=== PATIENT | female | born 1960 | race Caucasian/White ===

== ENCOUNTER 2018-03-14 21:31 | Emergency (ER) | payer MEDICARE ==
[~2018-03-14] VITALS: Ht 162.6 cm; Wt 72.4 kg
[2018-03-15] MEDS ORDERED: normal saline 1000ML IV soln IVB ONE (01:45)
[2018-03-15 02:19] LABS: BASOPHILS % (AUTO) 0.4 % (0-1); EOSINOPHILS # (AUTO) 0.1 X10'3 (0-0.9); EOSINOPHILS % (AUTO) 1.9 % (0-6); HEMATOCRIT 41.4 % (35.0-45.0); HEMOGLOBIN 14.2 g/dl (12.0-16.0); LYMPHOCYTES % (AUTO) 34.6 % (21-51); MEAN CORPUSCULAR HEMOGLOBIN 34.5 PG (27.0-31.0); MEAN CORPUSCULAR HGB CONC 34.4 % (33.0-36.5); MEAN CORPUSCULAR VOLUME 100.4 FL (78-98); MEAN PLATELET VOLUME 7.4 FL (7.4-10.4); MONOCYTES # (AUTO) 0.5 X10'3 (0-0.9); MONOCYTES % (AUTO) 8.5 % (2-12); NEUTROPHILS # (AUTO) 3.2 X10'3 (1.8-7.7); NEUTROPHILS % (AUTO) 54.6 % (42-75); PLATELET COUNT 178 X10'3 (140-440); RED BLOOD COUNT 4.12 X10'6 (4.20-5.60); RED CELL DISTRIBUTION WIDTH 15.2 % (11.5-14.5); WHITE BLOOD COUNT 5.9 X10'3 (4.5-11.0)
[2018-03-15 02:32] LABS: PARTIAL THROMBOPLASTIN TIME 25 SECONDS (22-32)
[2018-03-15 02:36] LABS: ALANINE AMINOTRANSFERASE 218 U/L (12-78); ALBUMIN 3.1 G/DL (3.4-5.0); ALBUMIN/GLOBULIN RATIO 0.9 (1.1-1.5); ALKALINE PHOSPHATASE 151 IU/L (46-116); ANION GAP 18 (8-16); ASPARTATE AMINO TRANSFERASE 404 U/L (10-37); BILIRUBIN,TOTAL 0.8 MG/DL (0.1-1.0); BLOOD UREA NITROGEN 9 MG/DL (7-18); BUN/CREATININE RATIO 12.3 (6.6-38.0); CALCIUM 8.7 MG/DL (8.5-10.1); CHLORIDE 99 MMOL/L (99-107); CREATININE 0.73 MG/DL (0.40-0.90); GLUCOSE 72 MG/DL (70-104); SODIUM 139 MMOL/L (135-145); TOTAL CARBON DIOXIDE 22.3 MMOL/L (24-32); TOTAL PROTEIN 6.7 G/DL (6.4-8.2); eGFR 82 ML/MIN
[2018-03-15 02:45] LABS: CREATINE KINASE 47 U/L (26-192); ETHANOL 0.144 GM/DL (0.0-0.010); MAGNESIUM 1.4 MG/DL (1.5-2.4)
[2018-03-15 03:27] LABS: URINE AMPHETAMINE SCREEN NEGATIVE (Neg); URINE BARBITUATE SCREEN NEGATIVE (Neg); URINE BENZODIAZEPINES SCREEN NEGATIVE (Neg); URINE CANNABINOID SCREEN NEGATIVE (Neg); URINE COCAINE SCREEN NEGATIVE (Neg); URINE METHADONE SCREEN NEGATIVE (Neg); URINE OPIATE SCREEN NEGATIVE (Neg); URINE PHENCYCLIDINE SCREEN NEGATIVE (Neg)
[2018-03-15 03:41] LABS: CLARITY,URINE CLEAR (Clear); COLOR,URINE YELLOW (Yellow); GLUCOSE, URINE NEGATIVE (Neg); KETONES,URINE 40 mg/dl (Neg); LEUKOCYTE ESTERASE ,URINE NEGATIVE (Neg); NITRITES, URINE NEGATIVE (Neg); OCCULT BLOOD,URINE NEGATIVE (Neg); PROTEIN,URINE NEGATIVE (Neg)
[2018-03-15 03:47] LABS: UA COLLECTION TYPE CLN CATCH MIDSTREAM
[2018-03-15] MEDS ORDERED: ondansetron/PF 4mg/2ml inj IV ONE (04:00)
[2018-03-15 04:35] VITALS: BP 140/70
== END 2018-03-15 04:37 | disposition home or self-care (01) ==
LOC: ER 21:32
DX: F10.929 Alcohol use, unspecified with intoxication, unspecified (principal); E03.9 Hypothyroidism, unspecified; R74.0 Nonspecific elevation of levels of transaminase and lactic acid dehydrogenase [LDH]; E78.00 Pure hypercholesterolemia, unspecified; F17.200 Nicotine dependence, unspecified, uncomplicated; I10 Essential (primary) hypertension; Z90.710 Acquired absence of both cervix and uterus; Z88.1 Allergy status to other antibiotic agents; Z88.8 Allergy status to other drugs, medicaments and biological substances
CPT/HCPCS: 36415; 71045; 80053; 80305; 80320; 81003; 82140; 82550; 83735; 84443; 84484; 85025; 85610; 85651; 85730; 93005; 96360; 99285; J7030; J2405

== ENCOUNTER 2018-03-22 07:45 | Inpatient (IN) | payer MEDICARE ==
[~2018-03-22] VITALS: Ht 160 cm; Wt 77.0 kg
[2018-03-22] MEDS ORDERED: LORazepam 1 MG tablet PO ONE (08:05)
[2018-03-22 09:10] LABS: BASOPHILS % (AUTO) 0.1 % (0-1); EOSINOPHILS % (AUTO) 0.8 % (0-6); HEMATOCRIT 36.8 % (35.0-45.0); HEMOGLOBIN 12.6 g/dl (12.0-16.0); LYMPHOCYTES # (AUTO) 0.7 X10'3 (1.1-4.8); LYMPHOCYTES % (AUTO) 11.6 % (21-51); MEAN CORPUSCULAR HEMOGLOBIN 34.7 PG (27.0-31.0); MEAN CORPUSCULAR HGB CONC 34.1 % (33.0-36.5); MEAN CORPUSCULAR VOLUME 101.6 FL (78-98); MEAN PLATELET VOLUME 7.3 FL (7.4-10.4); MONOCYTES # (AUTO) 0.4 X10'3 (0-0.9); MONOCYTES % (AUTO) 6.7 % (2-12); NEUTROPHILS # (AUTO) 4.5 X10'3 (1.8-7.7); NEUTROPHILS % (AUTO) 80.8 % (42-75); PLATELET COUNT 193 X10'3 (140-440); RED BLOOD COUNT 3.62 X10'6 (4.20-5.60); RED CELL DISTRIBUTION WIDTH 16.5 % (11.5-14.5); WHITE BLOOD COUNT 5.6 X10'3 (4.5-11.0)
[2018-03-22 09:24] LABS: ALANINE AMINOTRANSFERASE 274 U/L (12-78); ALBUMIN 3.3 G/DL (3.4-5.0); ALKALINE PHOSPHATASE 202 IU/L (46-116); ANION GAP 26 (8-16); ASPARTATE AMINO TRANSFERASE 394 U/L (10-37); BILIRUBIN,TOTAL 1.2 MG/DL (0.1-1.0); BLOOD UREA NITROGEN 7 MG/DL (7-18); BUN/CREATININE RATIO 8.4 (6.6-38.0); CALCIUM 8.7 MG/DL (8.5-10.1); CHLORIDE 98 MMOL/L (99-107); CREATININE 0.83 MG/DL (0.40-0.90); GLUCOSE 75 MG/DL (70-104); POTASSIUM 4.2 MMOL/L (3.5-5.1); SODIUM 139 MMOL/L (135-145); TOTAL CARBON DIOXIDE 15.5 MMOL/L (24-32); TOTAL PROTEIN 6.5 G/DL (6.4-8.2); eGFR 71 ML/MIN
[2018-03-22] MEDS ORDERED: normal saline 1000ML IV soln IVB ONE (09:30)
[2018-03-22] MEDS ORDERED: mag hydrox/Alum hydrox/simeth 30ml oral suspension PO PRN (15:30)
[2018-03-22] MEDS ORDERED: dextrose 50%-water 50ml dispensing syringe IV PRN (15:30)
[2018-03-22] MEDS ORDERED: acetaminophen 325mg tablet PO PRN ×2 (15:30)
[2018-03-22] MEDS ORDERED: ondansetron/PF 4mg/2ml inj IV PRN (15:30)
[2018-03-22] MEDS ORDERED: HYDROcodone/acetaminophen 5mg/325mg tablet PO PRN (15:30)
[2018-03-22] MEDS ORDERED: potassium Cl 20 mEq SR tablet PO PRN (15:30)
[2018-03-22] MEDS ORDERED: HYDROcodone/acetaminophen 10/325mg tab PO PRN (15:30)
[2018-03-22] MEDS ORDERED: potassium Cl 40MEQ/NS 500ml 500 ML IV PRN ×2 (15:30)
[2018-03-22] MEDS ORDERED: magnesium 4gm in 100ml NS 100 ML IV PRN (15:30)
[2018-03-22] MEDS ORDERED: morphine 2 MG/ML inj. syringe IV PRN ×2 (15:30)
[2018-03-22] MEDS ORDERED: magnesium 1gm/100ml D5W IVPB 100 ML IV PRN (15:30)
[2018-03-22] MEDS ORDERED: magnesium hydroxide 30ml (MOM) UD suspension PO PRN (15:30)
[2018-03-22 16:40] LABS: CLARITY,URINE Clear (Clear); COLOR,URINE Dark Yellow (Yellow); GLUCOSE, URINE Negative (Neg); KETONES,URINE 80 mg/dl (Neg); LEUKOCYTE ESTERASE ,URINE Negative (Neg); NITRITES, URINE Negative (Neg); OCCULT BLOOD,URINE Negative (Neg); PH,URINE 5.5 (4.8-8.0); PROTEIN,URINE 30 mg/dl (Neg)
[2018-03-22 16:42] LABS: UA COLLECTION TYPE FOLEY CATH
[2018-03-22 16:50] LABS: BACTERIA,URINE FEW /HPF (Neg); MUCUS STRANDS FEW /LPF (Neg); RBC,URINE 0-2 /HPF (0-2); SQUAMOUS EPITHELIAL CELL,UR FEW /LPF (FEW); WBC,URINE 0-4 /HPF (0-4)
[2018-03-22 17:10] LABS: URINE AMPHETAMINE SCREEN NEGATIVE (Neg); URINE BARBITUATE SCREEN NEGATIVE (Neg); URINE BENZODIAZEPINES SCREEN NEGATIVE (Neg); URINE CANNABINOID SCREEN NEGATIVE (Neg); URINE COCAINE SCREEN NEGATIVE (Neg); URINE METHADONE SCREEN NEGATIVE (Neg); URINE OPIATE SCREEN NEGATIVE (Neg); URINE PHENCYCLIDINE SCREEN NEGATIVE (Neg)
[2018-03-22 19:15] VITALS: BP 138/91
[2018-03-22 20:00] VITALS: BP_SYST 162; BP_SYST 167; BP_DIAS 81; BP_DIAS 96
[2018-03-22] MEDS: docusate sod 100mg capsule PO SCH (20:16)
[2018-03-22] MEDS: heparin, porcine 5000 units/ml vial SQ SCH (20:16)
[2018-03-22] MEDS ORDERED: temazepam 15mg capsule PO PRN (21:00)
[2018-03-22 22:00] VITALS: BP 162/81
[2018-03-23] MEDS: LORazepam 2 mg/ml vial IV PRN ×2 (02:55→20:41)
[2018-03-23 06:00] VITALS: BP 146/83
[2018-03-23] MEDS: docusate sod 100mg capsule PO SCH ×2 (07:25→20:00)
[2018-03-23] MEDS: heparin, porcine 5000 units/ml vial SQ SCH ×2 (07:25→20:12)
[2018-03-23] MEDS: nicotine 14mg patch - 24hr TD SCH (07:26)
[2018-03-23 07:31] LABS: BASOPHILS % (AUTO) 0.4 % (0-1); EOSINOPHILS # (AUTO) 0.1 X10'3 (0-0.9); EOSINOPHILS % (AUTO) 1.6 % (0-6); HEMATOCRIT 33.7 % (35.0-45.0); HEMOGLOBIN 11.8 g/dl (12.0-16.0); LYMPHOCYTES # (AUTO) 1.3 X10'3 (1.1-4.8); LYMPHOCYTES % (AUTO) 29.2 % (21-51); MEAN CORPUSCULAR HEMOGLOBIN 34.8 PG (27.0-31.0); MEAN CORPUSCULAR VOLUME 99.5 FL (78-98); MEAN PLATELET VOLUME 7.7 FL (7.4-10.4); MONOCYTES # (AUTO) 0.4 X10'3 (0-0.9); MONOCYTES % (AUTO) 8.7 % (2-12); NEUTROPHILS # (AUTO) 2.8 X10'3 (1.8-7.7); NEUTROPHILS % (AUTO) 60.1 % (42-75); PLATELET COUNT 159 X10'3 (140-440); RED BLOOD COUNT 3.38 X10'6 (4.20-5.60); RED CELL DISTRIBUTION WIDTH 16.4 % (11.5-14.5); WHITE BLOOD COUNT 4.6 X10'3 (4.5-11.0)
[2018-03-23 08:00] VITALS: BP 145/87
[2018-03-23] MEDS: K and/or MAG REPLACEMENT MC SCH (08:00)
[2018-03-23] MEDS ORDERED: FLUoxetine 20mg capsule PO SCH (08:00)
[2018-03-23 09:06] LABS: ALANINE AMINOTRANSFERASE 211 U/L (12-78); ALBUMIN 2.8 G/DL (3.4-5.0); ALBUMIN/GLOBULIN RATIO 0.9 (1.1-1.5); ALKALINE PHOSPHATASE 188 IU/L (46-116); ANION GAP 18 (8-16); ASPARTATE AMINO TRANSFERASE 259 U/L (10-37); BILIRUBIN,TOTAL 1.2 MG/DL (0.1-1.0); BLOOD UREA NITROGEN 4 MG/DL (7-18); BUN/CREATININE RATIO 5.6 (6.6-38.0); CALCIUM 8.8 MG/DL (8.5-10.1); CHLORIDE 99 MMOL/L (99-107); CREATININE 0.71 MG/DL (0.40-0.90); GLUCOSE 93 MG/DL (70-104); MAGNESIUM 1.4 MG/DL (1.5-2.4); POTASSIUM 3.3 MMOL/L (3.5-5.1); SODIUM 137 MMOL/L (135-145); TOTAL CARBON DIOXIDE 20.3 MMOL/L (24-32); TOTAL PROTEIN 5.8 G/DL (6.4-8.2); eGFR 85 ML/MIN
[2018-03-23] MEDS: potassium Cl 20 mEq SR tablet PO PRN ×3 (09:18→19:39)
[2018-03-23] MEDS: magnesium Cl slow-release 64mg tablet PO PRN ×2 (09:18→20:11)
[2018-03-23 10:00] VITALS: BP 145/87
[2018-03-23] MEDS ORDERED: FLUO20CA22 PO (11:28)
[2018-03-23] MEDS ORDERED: oxyCODONE/APAP 5-325mg tablet PO PRN (15:25)
[2018-03-23 18:00] VITALS: BP 154/101
[2018-03-23 20:00] VITALS: BP 135/71
[2018-03-23 22:00] VITALS: BP 154/98
[2018-03-24 06:00] VITALS: BP 152/94
[2018-03-24 06:12] LABS: BASOPHILS % (AUTO) 0.5 % (0-1); EOSINOPHILS # (AUTO) 0.1 X10'3 (0-0.9); EOSINOPHILS % (AUTO) 4.4 % (0-6); HEMATOCRIT 34.5 % (35.0-45.0); HEMOGLOBIN 11.8 g/dl (12.0-16.0); LYMPHOCYTES # (AUTO) 1.3 X10'3 (1.1-4.8); MEAN CORPUSCULAR HEMOGLOBIN 34.6 PG (27.0-31.0); MEAN CORPUSCULAR HGB CONC 34.3 % (33.0-36.5); MEAN CORPUSCULAR VOLUME 100.8 FL (78-98); MEAN PLATELET VOLUME 7.9 FL (7.4-10.4); MONOCYTES # (AUTO) 0.3 X10'3 (0-0.9); MONOCYTES % (AUTO) 9.6 % (2-12); NEUTROPHILS # (AUTO) 1.4 X10'3 (1.8-7.7); NEUTROPHILS % (AUTO) 45.5 % (42-75); PLATELET COUNT 170 X10'3 (140-440); RED BLOOD COUNT 3.42 X10'6 (4.20-5.60); WHITE BLOOD COUNT 3.2 X10'3 (4.5-11.0)
[2018-03-24 06:30] LABS: ALANINE AMINOTRANSFERASE 202 U/L (12-78); ALBUMIN 2.6 G/DL (3.4-5.0); ALBUMIN/GLOBULIN RATIO 0.9 (1.1-1.5); ALKALINE PHOSPHATASE 195 IU/L (46-116); ANION GAP 12 (8-16); ASPARTATE AMINO TRANSFERASE 258 U/L (10-37); BILIRUBIN,TOTAL 0.9 MG/DL (0.1-1.0); BLOOD UREA NITROGEN 4 MG/DL (7-18); BUN/CREATININE RATIO 5.6 (6.6-38.0); CALCIUM 8.9 MG/DL (8.5-10.1); CHLORIDE 103 MMOL/L (99-107); CREATININE 0.72 MG/DL (0.40-0.90); GLUCOSE 106 MG/DL (70-104); MAGNESIUM 1.5 MG/DL (1.5-2.4); POTASSIUM 3.6 MMOL/L (3.5-5.1); SODIUM 139 MMOL/L (135-145); TOTAL CARBON DIOXIDE 23.9 MMOL/L (24-32); TOTAL PROTEIN 5.6 G/DL (6.4-8.2); eGFR 84 ML/MIN
[2018-03-24] MEDS: nicotine 14mg patch - 24hr TD SCH (07:37)
[2018-03-24] MEDS: oxyCODONE/APAP 10/325mg tablet PO PRN ×2 (07:37→19:18)
[2018-03-24] MEDS: heparin, porcine 5000 units/ml vial SQ SCH ×2 (07:38→19:20)
[2018-03-24 08:00] VITALS: BP_SYST 124; BP_SYST 132; BP_DIAS 85; BP_DIAS 87
[2018-03-24] MEDS: docusate sod 100mg capsule PO SCH ×2 (08:00→19:18)
[2018-03-24] MEDS: K and/or MAG REPLACEMENT MC SCH (08:00)
[2018-03-24] MEDS: FLUoxetine 20mg capsule PO SCH (09:02)
[2018-03-24 10:00] VITALS: BP 132/87
[2018-03-24 16:27] VITALS: BP_SYST 109; BP_SYST 141; BP_SYST 148; BP_DIAS 79; BP_DIAS 91; BP_DIAS 95
[2018-03-24] MEDS ORDERED: normal saline 500ml IV soln 500 ML IV ONE (16:35)
[2018-03-24] MEDS: LORazepam 2 mg/ml vial IV PRN (16:56)
[2018-03-24 18:00] VITALS: BP 139/92
[2018-03-24 22:00] VITALS: BP 152/94
[2018-03-25 06:00] VITALS: BP 166/95
[2018-03-25 06:08] LABS: BASOPHILS % (AUTO) 0.7 % (0-1); EOSINOPHILS # (AUTO) 0.2 X10'3 (0-0.9); EOSINOPHILS % (AUTO) 5.8 % (0-6); LYMPHOCYTES # (AUTO) 1.4 X10'3 (1.1-4.8); LYMPHOCYTES % (AUTO) 44.1 % (21-51); MEAN CORPUSCULAR HEMOGLOBIN 34.6 PG (27.0-31.0); MEAN CORPUSCULAR HGB CONC 34.3 % (33.0-36.5); MEAN PLATELET VOLUME 7.6 FL (7.4-10.4); MONOCYTES # (AUTO) 0.3 X10'3 (0-0.9); MONOCYTES % (AUTO) 8.7 % (2-12); NEUTROPHILS # (AUTO) 1.3 X10'3 (1.8-7.7); NEUTROPHILS % (AUTO) 40.7 % (42-75); PLATELET COUNT 182 X10'3 (140-440); RED BLOOD COUNT 3.47 X10'6 (4.20-5.60); RED CELL DISTRIBUTION WIDTH 15.9 % (11.5-14.5); WHITE BLOOD COUNT 3.1 X10'3 (4.5-11.0)
[2018-03-25 06:31] LABS: ALANINE AMINOTRANSFERASE 206 U/L (12-78); ALBUMIN 2.5 G/DL (3.4-5.0); ALBUMIN/GLOBULIN RATIO 0.8 (1.1-1.5); ALKALINE PHOSPHATASE 196 IU/L (46-116); ANION GAP 9 (8-16); ASPARTATE AMINO TRANSFERASE 265 U/L (10-37); BILIRUBIN,TOTAL 0.7 MG/DL (0.1-1.0); BLOOD UREA NITROGEN 8 MG/DL (7-18); BUN/CREATININE RATIO 10.4 (6.6-38.0); CHLORIDE 103 MMOL/L (99-107); CREATININE 0.77 MG/DL (0.40-0.90); GLUCOSE 107 MG/DL (70-104); MAGNESIUM 1.3 MG/DL (1.5-2.4); POTASSIUM 3.8 MMOL/L (3.5-5.1); SODIUM 138 MMOL/L (135-145); TOTAL CARBON DIOXIDE 25.7 MMOL/L (24-32); TOTAL PROTEIN 5.7 G/DL (6.4-8.2); eGFR 78 ML/MIN
[2018-03-25] MEDS: K and/or MAG REPLACEMENT MC SCH (08:00)
[2018-03-25] MEDS: docusate sod 100mg capsule PO SCH (08:00)
[2018-03-25] MEDS: nicotine 14mg patch - 24hr TD SCH (08:43)
[2018-03-25] MEDS: heparin, porcine 5000 units/ml vial SQ SCH (08:44)
[2018-03-25] MEDS: FLUoxetine 20mg capsule PO SCH (08:44)
[2018-03-25] MEDS: oxyCODONE/APAP 10/325mg tablet PO PRN (08:49)
[2018-03-25] MEDS: magnesium Cl slow-release 64mg tablet PO PRN (09:45)
[2018-03-25] MEDS: LORazepam 2 mg/ml vial IV PRN (09:45)
[2018-03-25 10:00] VITALS: BP 125/76
== END 2018-03-25 14:00 | DRG 552 ==
LOC: ER 07:45 → OBSVTOIN 15:26 → ED HOLD 15:26 → EDBEDREQ 18:50 → ORTHO 4S 19:08
PROVIDERS: ADMIT Internal Medicine; ATTEND Internal Medicine
DX: M54.5 Low back pain (principal); E87.2 Acidosis; G62.9 Polyneuropathy, unspecified; R53.1 Weakness; F32.9 Major depressive disorder, single episode, unspecified; R26.81 Unsteadiness on feet; E78.00 Pure hypercholesterolemia, unspecified; E86.0 Dehydration; F10.10 Alcohol abuse, uncomplicated; F41.9 Anxiety disorder, unspecified; M79.604 Pain in right leg; M79.605 Pain in left leg; I10 Essential (primary) hypertension; F17.200 Nicotine dependence, unspecified, uncomplicated; Z66 Do not resuscitate; Z60.2 Problems related to living alone; G89.29 Other chronic pain; R74.0 Nonspecific elevation of levels of transaminase and lactic acid dehydrogenase [LDH]; R26.89 Other abnormalities of gait and mobility; W18.30XA Fall on same level, unspecified, initial encounter; Z90.710 Acquired absence of both cervix and uterus; Z88.1 Allergy status to other antibiotic agents; Z88.8 Allergy status to other drugs, medicaments and biological substances; Z79.899 Other long term (current) drug therapy; Y92.009 Unspecified place in unspecified non-institutional (private) residence as the place of occurrence of the external cause
CPT/HCPCS: 36415; 72100; 72131; 80053; 80305; 81001; 83605; 83735; 85025; 87070; 96360; 97110; 97116; 97161; 97530; 99285; A4353; J1644; J2060; J7030

== ENCOUNTER 2018-05-27 09:21 | Outpatient (CLI) | payer MEDICARE ==
[2018-05-27] VITALS (18 sets, daily range): BP systolic 108–160; BP diastolic 76–100
[~2018-05-27 09:21] MED LIST: FLUO20CA22 PO
== END 2018-05-27 23:59 | disposition home or self-care (01) ==
LOC: CARD DIAG 09:21
PROVIDERS: ATTEND Internal Medicine Interventional Cardiology
DX: R42 Dizziness and giddiness (principal); I10 Essential (primary) hypertension; F17.200 Nicotine dependence, unspecified, uncomplicated
CPT/HCPCS: 93660

== ENCOUNTER 2019-03-16 18:59 | Inpatient (IN) | payer MEDICARE ==
[~2019-03-16] VITALS: Ht 162.6 cm; Wt 81.0 kg
[2019-03-16] MEDS ORDERED: ondansetron/PF 4mg/2ml inj IV ONE ×2 (19:10→21:50)
[2019-03-16] MEDS ORDERED: normal saline 1000ML IV soln IVB ONE (19:10)
[2019-03-16 19:27] LABS: HEMOGLOBIN 12.1 g/dl (12.0-16.0); MEAN CORPUSCULAR HEMOGLOBIN 32.4 PG (27.0-31.0); MEAN CORPUSCULAR HGB CONC 31.9 g/dL (33.0-36.5); MEAN CORPUSCULAR VOLUME 101.6 FL (78-98); MEAN PLATELET VOLUME 7.6 FL (7.4-10.4); PLATELET COUNT 242 X10'3 (140-440); RED BLOOD COUNT 3.74 X10'6 (4.20-5.60); RED CELL DISTRIBUTION WIDTH 15.8 % (11.5-14.5); WHITE BLOOD COUNT 9.5 X10'3 (4.5-11.0)
--- NOTE | 2019-03-16 19:36 | NUR ---
PT TO CT
[2019-03-16 19:41] LABS: ALANINE AMINOTRANSFERASE 173 U/L (12-78); ALBUMIN 2.6 G/DL (3.4-5.0); ALKALINE PHOSPHATASE 490 IU/L (46-116); ANION GAP 24 (8-16); BILIRUBIN,TOTAL 9.7 MG/DL (0.1-1.0); BLOOD UREA NITROGEN 35 MG/DL (7-18); BUN/CREATININE RATIO 10.8 (6.6-38.0); CALCIUM 8.1 MG/DL (8.5-10.1); CHLORIDE 81 MMOL/L (99-107); CREATININE 3.23 MG/DL (0.40-0.90); GLUCOSE 116 MG/DL (70-104); LIPASE 595 U/L (73-393); SODIUM 126 MMOL/L (135-145); TOTAL CARBON DIOXIDE 21.5 MMOL/L (24-32); eGFR 15 ML/MIN
[2019-03-16 19:46] LABS: ALBUMIN/GLOBULIN RATIO 0.7 (1.1-1.5); TOTAL PROTEIN 6.1 G/DL (6.4-8.2)
[2019-03-16 19:47] LABS: ASPARTATE AMINO TRANSFERASE 298 U/L (10-37); ETHANOL < 0.010 GM/DL (0.0-0.010)
[2019-03-16 19:49] LABS: POTASSIUM 2.8 MMOL/L (3.5-5.1)
--- NOTE | 2019-03-16 19:51 | NUR ---
BACK IN ROOM
[2019-03-16] MEDS ORDERED: normal saline 1000ML IV soln IV ONE (20:05)
[2019-03-16] MEDS ORDERED: levoFLOXACIN-Levaquin 250mg/D5 50 ML IV ONE (20:05)
[2019-03-16 20:25] LABS: URINE HCG NEGATIVE (NEG)
[2019-03-16] MEDS ORDERED: potassium Cl 10 mEq/100mL bag IV ONE (20:25)
[2019-03-16 20:32] LABS: URINE AMPHETAMINE SCREEN NEGATIVE (Neg); URINE BARBITUATE SCREEN NEGATIVE (Neg); URINE BENZODIAZEPINES SCREEN NEGATIVE (Neg); URINE CANNABINOID SCREEN NEGATIVE (Neg); URINE COCAINE SCREEN NEGATIVE (Neg); URINE METHADONE SCREEN NEGATIVE (Neg); URINE OPIATE SCREEN POSITIVE (Neg); URINE PHENCYCLIDINE SCREEN NEGATIVE (Neg)
[2019-03-16 20:35] LABS: CLARITY,URINE CLOUDY (Clear); COLOR,URINE AMBER (Yellow); GLUCOSE, URINE NEGATIVE (Neg); KETONES,URINE TRACE mg/dl (Neg); LEUKOCYTE ESTERASE ,URINE NEGATIVE (Neg); NITRITES, URINE NEGATIVE (Neg); OCCULT BLOOD,URINE TRACE-LYSED (Neg); PROTEIN,URINE 30 mg/dl (Neg); UA COLLECTION TYPE STRAIGHT CATH
[2019-03-16 21:03] LABS: BACTERIA,URINE 3+ /HPF (Neg); MUCUS STRANDS NONE SEEN /LPF (Neg); RBC,URINE NONE SEEN /HPF (0-2); SQUAMOUS EPITHELIAL CELL,UR FEW /LPF (FEW); WBC,URINE NONE SEEN /HPF (0-4)
[2019-03-16 21:11] LABS: BANDS% (MANUAL) 1 % (0-10); BASOPHILS % (MANUAL) 2 % (0-1); LYMPHOCYTES % (MANUAL) 16 % (21-51); METAMYLEOCYTES% (MANUAL) 1 % (0-0); MONOCYTES % (MANUAL) 7 % (2-12); NEUTROPHILS % (MANUAL) 73 % (42-75); NUCLEATED RED BLOOD CELLS 2 /100WBC (0-0); TOTAL CELLS COUNTED 100
[2019-03-16 21:12] LABS: PLATELET ESTIMATE NORMAL; POLYCHROMASIA 1+
[2019-03-16] MEDS: normal saline 1000ml 1,000 ML IV SCH (22:10)
[2019-03-16] MEDS ORDERED: VENL-190 PO (22:26)
[2019-03-16] MEDS: K, MAG and/or Phos replacement - Verify level? MC SCH (22:30)
[2019-03-16] MEDS ORDERED: magnesium hydroxide 30ml (MOM) UD suspension PO PRN (22:30)
[2019-03-16] MEDS ORDERED: acetaminophen 325mg tablet PO PRN ×2 (22:30)
[2019-03-16] MEDS ORDERED: potassium CL 10mEq/100ml bag 100 ML IV PRN ×2 (22:30)
[2019-03-16] MEDS ORDERED: ondansetron/PF 4mg/2ml inj IV PRN (22:30)
[2019-03-16] MEDS ORDERED: potassium Cl 20 mEq SR tablet PO PRN (22:30)
[2019-03-16] MEDS ORDERED: FLUT16SP11 (22:31)
[2019-03-16] MEDS ORDERED: diphenhydrAMINE 50 mg/ml inj IV ONE (22:45)
[2019-03-16] MEDS: morphine 4 MG/ML inj SYRINge IV PRN (23:04)
[2019-03-17] VITALS (22 sets, daily range): BP systolic 88–124; BP diastolic 45–77
--- NOTE | 2019-03-17 00:12 | NUR ---
pt on bedpan
--- NOTE | 2019-03-17 00:23 | NUR ---
off of bedpan, no results, pt stated it was just gas. Tucked her into bed, lights off and door closed, she has the call light. She is very tired.
--- NOTE | 2019-03-17 02:00 | NUR ---
Patient in room CICU 2013. I have received report from Dhara SELLERS and had the opportunity to ask questions and assume patient care.
--- NOTE | 2019-03-17 02:30 | NUR ---
Pt is lying in bed, tired, but alert and oriented. She is complaining of being thirsty and wants ice chips. She is also complaining of her skin being itchy. Pt is able to answer questions appropriately and is aware of where she is and why. Pt's BP is WNL, O2 sats are 96% on RA, HR 80, RR 16, Temp 36.7C. Pt's skin is jaundiced, with no wounds or rashes present. Pt is acting somewhat hard of hearing. Urine output in bag is 100mls, and is thick and full of sediment.
--- NOTE | 2019-03-17 05:53 | NUR ---
Pt has not been making much urine the last few hours. Conducted a bladder scan, which showed 63mls of urine present in bladder. Will let next shift know that urine production is low.
--- NOTE | 2019-03-17 06:22 | NUR ---
Problems reprioritized. Patient report given, questions answered & plan of care reviewed with Mila SELLERS.
--- NOTE | 2019-03-17 06:24 | NUR ---
Patient in room CICU 2013. I have received report from Riki Brown RN and had the opportunity to ask questions and assume patient care.
[2019-03-17 07:44] LABS: HEMOGLOBIN 10.5 g/dl (12.0-16.0); RED BLOOD COUNT 3.23 X10'6 (4.20-5.60); RED CELL DISTRIBUTION WIDTH 15.4 % (11.5-14.5); WHITE BLOOD COUNT 9.2 X10'3 (4.5-11.0)
[2019-03-17 07:46] LABS: MEAN CORPUSCULAR HEMOGLOBIN 32.6 PG (27.0-31.0); MEAN CORPUSCULAR HGB CONC 31.9 g/dL (33.0-36.5); MEAN CORPUSCULAR VOLUME 102.1 FL (78-98); MEAN PLATELET VOLUME 7.3 FL (7.4-10.4); PLATELET COUNT 198 X10'3 (140-440)
[2019-03-17] MEDS: lactulose 20gm/30ml cup PO SCH ×2 (07:54→19:35)
[2019-03-17] MEDS: pantoprazole 40 MG vial IV SCH (07:54)
[2019-03-17] MEDS: normal saline 1000ml 1,000 ML IV SCH (07:55)
[2019-03-17] MEDS: levoFLOXACIN-Levaquin 250mg/D5 50 ML IV SCH (07:55)
[2019-03-17 07:58] LABS: ALANINE AMINOTRANSFERASE 150 U/L (12-78); ALBUMIN 2.2 G/DL (3.4-5.0); ALKALINE PHOSPHATASE 423 IU/L (46-116); ANION GAP 19 (8-16); BILIRUBIN,TOTAL 8.9 MG/DL (0.1-1.0); BLOOD UREA NITROGEN 33 MG/DL (7-18); BUN/CREATININE RATIO 10.7 (6.6-38.0); CALCIUM 6.8 MG/DL (8.5-10.1); CHLORIDE 89 MMOL/L (99-107); CREATININE 3.09 MG/DL (0.40-0.90); GLUCOSE 97 MG/DL (70-104); MAGNESIUM 1.5 MG/DL (1.5-2.4); SODIUM 127 MMOL/L (135-145); TOTAL CARBON DIOXIDE 18.7 MMOL/L (24-32); eGFR 16 ML/MIN
[2019-03-17] MEDS: K, MAG and/or Phos replacement - Verify level? MC SCH (08:00)
[2019-03-17 08:03] LABS: ALBUMIN/GLOBULIN RATIO 0.7 (1.1-1.5); ASPARTATE AMINO TRANSFERASE 248 U/L (10-37); CREATINE KINASE 75 U/L (26-192); PHOSPHORUS 2.3 MG/DL (2.3-4.5); POTASSIUM 3.1 MMOL/L (3.5-5.1); TOTAL PROTEIN 5.2 G/DL (6.4-8.2)
[2019-03-17 08:47] LABS: PLATELET ESTIMATE NORMAL; POLYCHROMASIA FEW; TOTAL CELLS COUNTED 100
[2019-03-17] MEDS: potassium Cl 20 mEq SR tablet PO PRN ×3 (08:56→17:30)
[2019-03-17] MEDS: morphine 4 MG/ML inj SYRINge IV PRN ×3 (08:57→19:25)
--- NOTE | 2019-03-17 10:10 | NUR ---
Report given to Fly Rios RN, she is receiving patient.
[2019-03-17 14:36] LABS: OCCULT BLOOD STOOL POSITIVE (Neg)
[2019-03-17] MEDS ORDERED: furosemide 20 MG/2 ML vial IV ONE (14:45)
--- NOTE | 2019-03-17 14:46 | NUR ---
1400- Spoke with MD. Reported urine output of 24cc this shift, order for lasix 20mg given. Reported stools dark in natures perhaps bloody, sent stool for guaiac. Patient remains with odd affect. States she is unable to move due to "neuropathy is bad" but can be observed reaching for phone, and holding ice chips and feeding self. Reported to MD , patient's desire to be a DNR, and the need for a withdrawal protocol.
[2019-03-17] MEDS: MVI, adult No.4 with vit. K 10 ML in dextrose 5% water 500ml 490 ML IV SCH ×2 (16:41)
[2019-03-17] MEDS: thiamine inj. 100 MG in normal saline 100ml IV soln 100 ML IV SCH (16:41)
--- NOTE | 2019-03-17 18:21 | NUR ---
Patient in room CICU 2013. I have received report from Raghavendra SELLERS and had the opportunity to ask questions and assume patient care.
--- NOTE | 2019-03-17 18:21 | NUR ---
Problems reprioritized. Patient report given, questions answered & plan of care reviewed with
--- NOTE | 2019-03-17 18:38 | NUR ---
Problems reprioritized. Patient report given, questions answered & plan of care reviewed with
[2019-03-17] MEDS: lactobacillus rhamnosus 10,000 MMU CELLS/CAPSULE PO SCH (19:35)
[2019-03-18] VITALS (32 sets, daily range): BP systolic 94–122; BP diastolic 47–69
[2019-03-18] MEDS: morphine 4 MG/ML inj SYRINge IV PRN ×5 (00:07→22:24)
[2019-03-18] MEDS: normal saline 1000ml 1,000 ML IV SCH ×2 (00:33→04:05)
[2019-03-18 04:31] LABS: HEMATOCRIT 32.8 % (35.0-45.0); HEMOGLOBIN 10.4 g/dl (12.0-16.0); MEAN CORPUSCULAR HGB CONC 31.6 g/dL (33.0-36.5)
[2019-03-18 04:32] LABS: MEAN CORPUSCULAR HEMOGLOBIN 32.7 PG (27.0-31.0); MEAN CORPUSCULAR VOLUME 103.5 FL (78-98); PLATELET COUNT 203 X10'3 (140-440); RED BLOOD COUNT 3.17 X10'6 (4.20-5.60); RED CELL DISTRIBUTION WIDTH 15.7 % (11.5-14.5); WHITE BLOOD COUNT 9.4 X10'3 (4.5-11.0)
[2019-03-18 04:48] LABS: ALANINE AMINOTRANSFERASE 151 U/L (12-78); ALBUMIN 2.2 G/DL (3.4-5.0); ALKALINE PHOSPHATASE 459 IU/L (46-116); ANION GAP 19 (8-16); BILIRUBIN,TOTAL 10.2 MG/DL (0.1-1.0); BLOOD UREA NITROGEN 32 MG/DL (7-18); BUN/CREATININE RATIO 7.9 (6.6-38.0); CALCIUM 7.1 MG/DL (8.5-10.1); CHLORIDE 88 MMOL/L (99-107); CREATININE 4.03 MG/DL (0.40-0.90); GLUCOSE 114 MG/DL (70-104); MAGNESIUM 1.5 MG/DL (1.5-2.4); SODIUM 124 MMOL/L (135-145); TOTAL CARBON DIOXIDE 16.7 MMOL/L (24-32); eGFR 11 ML/MIN
[2019-03-18 04:51] LABS: ALBUMIN/GLOBULIN RATIO 0.7 (1.1-1.5); ASPARTATE AMINO TRANSFERASE 248 U/L (10-37); PHOSPHORUS 1.5 MG/DL (2.3-4.5); POTASSIUM 3.4 MMOL/L (3.5-5.1); TOTAL PROTEIN 5.3 G/DL (6.4-8.2)
[2019-03-18 05:12] LABS: TOTAL CELLS COUNTED 100
[2019-03-18 05:17] LABS: ANISOCYTOSIS 1+; PLATELET ESTIMATE NORMAL; POLYCHROMASIA 1+
[2019-03-18 05:18] LABS: STOMATOCYTES 1+
--- NOTE | 2019-03-18 06:26 | NUR ---
Problems reprioritized. Patient report given, questions answered & plan of care reviewed with Art RN.
[2019-03-18] MEDS: venlafaxine XR 75mg capsule (Q24H) PO SCH (07:53)
[2019-03-18] MEDS: potassium Cl 20 mEq SR tablet PO PRN ×2 (07:53→14:20)
[2019-03-18] MEDS: lactulose 20gm/30ml cup PO SCH ×2 (07:53→20:04)
[2019-03-18] MEDS: lactobacillus rhamnosus 10,000 MMU CELLS/CAPSULE PO SCH ×2 (07:53→20:04)
[2019-03-18] MEDS: MVI, adult No.4 with vit. K 10 ML in dextrose 5% water 500ml 490 ML IV SCH ×2 (07:54)
[2019-03-18] MEDS: fluticasone nasal spray 16GM bottle NS SCH (07:54)
[2019-03-18] MEDS: pantoprazole 40 MG vial IV SCH (07:54)
[2019-03-18] MEDS: levoFLOXACIN-Levaquin 250mg/D5 50 ML IV SCH (07:54)
[2019-03-18] MEDS: thiamine inj. 100 MG in normal saline 100ml IV soln 100 ML IV SCH (07:54)
[2019-03-18] MEDS ORDERED: FLUTICASONE PROPIONATE SCH (08:00)
[2019-03-18] MEDS: K, MAG and/or Phos replacement - Verify level? MC SCH (08:00)
[2019-03-18] MEDS ORDERED: sodium bicarbonate inj. 75 ML in dextrose 5% water 500ml 500 ML IV SCH (09:30)
--- NOTE | 2019-03-18 09:54 | NUR ---
Requested bicarb from pharmacy
--- NOTE | 2019-03-18 11:02 | NUR ---
Dr. Hartmann changed wolfgang to not be made with D5. Pharmacy will remake bicarb and send it up. Addendum: 03/18/19 at 1528 by Js Lyn III, RN Physical therapy working with pt. Pt demanded "Back rubs" in exchange for doing Physical Therapy
[2019-03-18] MEDS ORDERED: sodium bicarbonate (8.4%) inj. 100 MEQ in sodium chloride 0.45% 1,000 ML IV SCH (11:40)
[2019-03-18] MEDS: sodium bicarbonate inj. 100 ML in sodium chloride 0.45% 1,000 ML IV SCH (17:30)
[2019-03-18] MEDS ORDERED: haloperidol lactate 5mg/ml inj IM PRN (19:35)
[2019-03-18] MEDS ORDERED: dextrose 50%-water 50ml dispensing syringe IV PRN (19:35)
[2019-03-18] MEDS ORDERED: haloperidol 5mg tablet PO PRN (19:35)
[2019-03-18] MEDS ORDERED: LORazepam 2 mg/ml vial IV PRN (19:35)
[2019-03-18] MEDS: morphine 2 MG/ML inj. syringe IV PRN (20:04)
[2019-03-18] MEDS: proCHLORperazine 10 MG/2 ml inj IV PRN (20:04)
[2019-03-19] VITALS (24 sets, daily range): BP systolic 83–112; BP diastolic 39–64
[2019-03-19] MEDS: morphine 4 MG/ML inj SYRINge IV PRN ×2 (03:14→16:57)
[2019-03-19] MEDS: sodium bicarbonate inj. 100 ML in sodium chloride 0.45% 1,000 ML IV SCH ×3 (04:15→20:00)
[2019-03-19 04:31] LABS: WHITE BLOOD COUNT 11.7 X10'3 (4.5-11.0)
[2019-03-19 04:32] LABS: HEMATOCRIT 32.4 % (35.0-45.0); HEMOGLOBIN 10.3 g/dl (12.0-16.0); MEAN CORPUSCULAR HEMOGLOBIN 32.5 PG (27.0-31.0); MEAN CORPUSCULAR HGB CONC 31.6 g/dL (33.0-36.5); MEAN PLATELET VOLUME 7.9 FL (7.4-10.4); PLATELET COUNT 205 X10'3 (140-440); RED BLOOD COUNT 3.15 X10'6 (4.20-5.60); RED CELL DISTRIBUTION WIDTH 15.4 % (11.5-14.5)
[2019-03-19 05:23] LABS: ALANINE AMINOTRANSFERASE 140 U/L (12-78); ALBUMIN 2.1 G/DL (3.4-5.0); ALKALINE PHOSPHATASE 474 IU/L (46-116); ANION GAP 23 (8-16); BILIRUBIN,TOTAL 11.5 MG/DL (0.1-1.0); BLOOD UREA NITROGEN 33 MG/DL (7-18); BUN/CREATININE RATIO 6.2 (6.6-38.0); CALCIUM 7.2 MG/DL (8.5-10.1); CHLORIDE 86 MMOL/L (99-107); CREATININE 5.29 MG/DL (0.40-0.90); GLUCOSE 115 MG/DL (70-104); MAGNESIUM 1.3 MG/DL (1.5-2.4); SODIUM 124 MMOL/L (135-145); TOTAL CARBON DIOXIDE 15.3 MMOL/L (24-32); eGFR 8 ML/MIN
[2019-03-19 05:34] LABS: POTASSIUM 3.6 MMOL/L (3.5-5.1)
[2019-03-19 05:35] LABS: ALBUMIN/GLOBULIN RATIO 0.7 (1.1-1.5); ASPARTATE AMINO TRANSFERASE 224 U/L (10-37); PHOSPHORUS 1.5 MG/DL (2.3-4.5); TOTAL PROTEIN 5.3 G/DL (6.4-8.2)
[2019-03-19 05:58] LABS: TOTAL CELLS COUNTED 100
[2019-03-19 06:01] LABS: STOMATOCYTES 1+
[2019-03-19 06:02] LABS: TOXIC VACUOLATION FEW
[2019-03-19] MEDS: morphine 2 MG/ML inj. syringe IV PRN ×2 (06:05→20:23)
--- NOTE | 2019-03-19 06:59 | NUR ---
Patient in room ICU 2038. I have received report from Isabella SELLERS and had the opportunity to ask questions and assume patient care.
[2019-03-19] MEDS ORDERED: pantoprazole 40mg Tablet.DR PO SCH (07:30)
[2019-03-19] MEDS: lactobacillus rhamnosus 10,000 MMU CELLS/CAPSULE PO SCH ×2 (07:51→20:00)
[2019-03-19] MEDS: multivitamins, therapeutics tablet PO SCH (07:52)
[2019-03-19] MEDS: lactulose 20gm/30ml cup PO SCH ×2 (07:52→20:00)
[2019-03-19] MEDS: K, MAG and/or Phos replacement - Verify level? MC SCH (08:00)
[2019-03-19] MEDS: fluticasone nasal spray 16GM bottle NS SCH (08:00)
[2019-03-19] MEDS ORDERED: thiamine 100mg tablet PO SCH (08:00)
[2019-03-19] MEDS ORDERED: albumin (human) 25% 100ml IV 100 ML IV PRN (09:10)
[2019-03-19] MEDS ORDERED: phytonadione inj. 10 MG in normal saline 100ml IV soln 99 ML IV ONE (09:10)
[2019-03-19] MEDS ORDERED: epoetin 20,000 units/ml inj IV ONE (09:10)
[2019-03-19] MEDS ORDERED: heparin 1,000 units/ml 10ml inj HE ONE ×2 (09:15)
[2019-03-19 09:26] LABS: PLATELET ESTIMATE NORMAL
[2019-03-19] MEDS ORDERED: levoFLOXACIN 250mg tablet PO SCH (11:00)
[2019-03-19] MEDS: levoFLOXACIN-Levaquin 250mg/D5 50 ML IV SCH (12:59)
[2019-03-19] MEDS ORDERED: midazolam 2 mg/2 ml injection IV PRN (14:40)
[2019-03-19] MEDS ORDERED: fentaNYL/PF 50MCG/1 ML 2ML syringe IV PRN (14:40)
[2019-03-19] MEDS ORDERED: heparin 1,000 units/ml 10ml inj ICATH ONE (14:40)
[2019-03-19] MEDS ORDERED: LIDOcaine 1%/PF 5ML 10 MG/ML VIAL ONE ×2 (14:56→15:15)
[2019-03-19] MEDS ORDERED: fentaNYL/PF 50MCG/1 ML 2ML syringe ONE (14:56)
[2019-03-19] MEDS ORDERED: heparin 1,000unit/ml 10ml vial 10 ML ONE (14:56)
--- NOTE | 2019-03-19 14:58 | NUR ---
Patient to Angio for TDC placement
--- NOTE | 2019-03-19 17:57 | NUR ---
Hold Bicarb drip, per Dr. Hartmann, until Dialysis is completed, then restart.
[2019-03-19] MEDS: proCHLORperazine 10 MG/2 ml inj IV PRN (20:23)
[2019-03-20] VITALS (16 sets, daily range): BP systolic 84–99; BP diastolic 42–61
[2019-03-20] MEDS: morphine 4 MG/ML inj SYRINge IV PRN ×2 (00:10→05:05)
[2019-03-20 04:48] LABS: HEMOGLOBIN 9.8 g/dl (12.0-16.0); WHITE BLOOD COUNT 14.2 X10'3 (4.5-11.0)
[2019-03-20 04:51] LABS: HEMATOCRIT 30.7 % (35.0-45.0); MEAN CORPUSCULAR HEMOGLOBIN 32.8 PG (27.0-31.0); MEAN CORPUSCULAR HGB CONC 31.9 g/dL (33.0-36.5); MEAN CORPUSCULAR VOLUME 102.7 FL (78-98); MEAN PLATELET VOLUME 7.9 FL (7.4-10.4); PLATELET COUNT 213 X10'3 (140-440); RED BLOOD COUNT 2.99 X10'6 (4.20-5.60); RED CELL DISTRIBUTION WIDTH 16.1 % (11.5-14.5)
[2019-03-20 05:14] LABS: ALANINE AMINOTRANSFERASE 124 U/L (12-78); ALBUMIN 2.4 G/DL (3.4-5.0); ALKALINE PHOSPHATASE 451 IU/L (46-116); ANION GAP 20 (8-16); BILIRUBIN,TOTAL 11.6 MG/DL (0.1-1.0); BLOOD UREA NITROGEN 19 MG/DL (7-18); BUN/CREATININE RATIO 4.9 (6.6-38.0); CALCIUM 7.6 MG/DL (8.5-10.1); CHLORIDE 91 MMOL/L (99-107); CREATININE 3.88 MG/DL (0.40-0.90); GLUCOSE 126 MG/DL (70-104); MAGNESIUM 1.5 MG/DL (1.5-2.4); SODIUM 131 MMOL/L (135-145); TOTAL CARBON DIOXIDE 20.3 MMOL/L (24-32); eGFR 12 ML/MIN
[2019-03-20 05:17] LABS: ALBUMIN/GLOBULIN RATIO 0.9 (1.1-1.5); ASPARTATE AMINO TRANSFERASE 254 U/L (10-37); PHOSPHORUS 1.3 MG/DL (2.3-4.5); POTASSIUM 3.5 MMOL/L (3.5-5.1); TOTAL PROTEIN 5.2 G/DL (6.4-8.2)
--- NOTE | 2019-03-20 06:04 | NUR ---
Rec'd critical H/H from lab (7.4/21.7), down from 10.9/31.6 at 13:26 on 03/19/19. That was drawn after the original procedure, but before pt was taken back to OR to evacuate a large hematoma. Pt's blood pressures have been a little soft overnight (SBP's in 90's), Dr. Weiss was called and did not want to transfuse at this time. 2 units of PRBC's are on hold from surgery, but the type & cross was 03/17/19 & will at 15:47 today 03/20/19. Addendum: 03/20/19 at 0611 by Isabella Ureña RN Note entered in error on wrong patient. Please disregard.
[2019-03-20] MEDS: sodium bicarbonate inj. 100 ML in sodium chloride 0.45% 1,000 ML IV SCH (06:15)
--- NOTE | 2019-03-20 06:30 | NUR ---
Patient in room ICU 2038. I have received report from VERITO Mason and had the opportunity to ask questions and assume patient care.
[2019-03-20 06:42] LABS: NUCLEATED RED BLOOD CELLS 1 /100WBC (0-0); TOTAL CELLS COUNTED 100
[2019-03-20 06:43] LABS: ANISOCYTOSIS 1+; PLATELET ESTIMATE NORMAL; POLYCHROMASIA 2+
[2019-03-20 06:44] LABS: STOMATOCYTES 2+; TOXIC GRANULATION 1+; TOXIC VACUOLATION FEW
[2019-03-20] MEDS: pantoprazole 40 MG vial IV SCH (07:41)
[2019-03-20] MEDS: levoFLOXACIN-Levaquin 250mg/D5 50 ML IV SCH (07:41)
[2019-03-20] MEDS: K, MAG and/or Phos replacement - Verify level? MC SCH (07:50)
[2019-03-20] MEDS: fluticasone nasal spray 16GM bottle NS SCH (08:00)
[2019-03-20 08:16] LABS: HBSAG SCREEN Negative (Negative)
[2019-03-20] MEDS: thiamine inj. 100 MG, folic acid inj. 2 MG in normal saline 100ml IV soln 100 ML IV SCH (09:15)
[2019-03-20] MEDS: MVI, adult No.4 with vit. K 10 ML in dextrose 5% water 500ml 500 ML IV SCH ×2 (09:16)
[2019-03-20] MEDS: lactulose 20gm/30ml cup PO SCH ×2 (09:32→20:10)
[2019-03-20] MEDS ORDERED: epoetin 20,000 units/ml inj IV ONE (09:35)
[2019-03-20] MEDS ORDERED: sodium phosphate inj. 30 MMOL in dextrose 5%-water 250 ML IV PRN (09:35)
[2019-03-20] MEDS ORDERED: heparin 1,000unit/ml 10ml vial 10 ML IV ONE (09:35)
[2019-03-20] MEDS ORDERED: heparin 1,000 units/ml 10ml inj IV ONE (09:35)
[2019-03-20] MEDS ORDERED: albumin (human) 25% 100ml IV 100 ML IV PRN (09:35)
[2019-03-20] MEDS ORDERED: sodium phosphate inj. 15 MMOL in dextrose 5%-water 150 ML IV PRN (09:35)
[2019-03-20] MEDS ORDERED: heparin 1,000 units/ml 10ml inj HE ONE ×2 (09:40)
[2019-03-20] MEDS: lactobacillus rhamnosus 10,000 MMU CELLS/CAPSULE PO SCH ×2 (10:00→20:10)
--- NOTE | 2019-03-20 10:00 | NUR ---
Problems reprioritized. Patient report given, questions answered & plan of care reviewed with VERITO Bello.
--- NOTE | 2019-03-20 10:45 | NUR ---
Patient in room ICU 2038. I have received report from VERITO Whelan and had the opportunity to ask questions and assume patient care.
[2019-03-20] MEDS: Neutra Phos packet PO PRN ×2 (11:47→20:10)
--- NOTE | 2019-03-20 12:06 | NUR ---
Patient in room ICU 2038. I have received report from Ephraim and had the opportunity to ask questions and assume patient care.
--- NOTE | 2019-03-20 12:35 | NUR ---
Pt arrived on the floor in a recliner.
--- NOTE | 2019-03-20 12:42 | NUR ---
Transferred to [facility], RN received patient. Stable for transfer per Business Supervisor.
--- NOTE | 2019-03-20 18:28 | NUR ---
Problems reprioritized. Patient report given, questions answered & plan of care reviewed with Demetria and Will.
[2019-03-20] MEDS ORDERED: LORazepam 1 MG tablet PO PRN (19:35)
[2019-03-20] MEDS ORDERED: LORazepam 2 mg/ml vial IV PRN (19:35)
--- NOTE | 2019-03-21 03:06 | NUR ---
Patient in room ORTHO 4017. I have received report from lisa and had the opportunity to ask questions and assume patient care.
[2019-03-21] MEDS: Neutra Phos packet PO PRN (04:02)
[2019-03-21 06:00] VITALS: BP 97/48
--- NOTE | 2019-03-21 06:22 | NUR ---
Problems reprioritized. Patient report given, questions answered & plan of care reviewed with
--- NOTE | 2019-03-21 06:29 | NUR ---
Patient in room ORTHO 4017. I have received report from Demetria and Otoniel and had the opportunity to ask questions and assume patient care.
[2019-03-21] MEDS: levoFLOXACIN-Levaquin 250mg/D5 50 ML IV SCH (07:08)
[2019-03-21] MEDS: pantoprazole 40 MG vial IV SCH (07:08)
[2019-03-21] MEDS: fluticasone nasal spray 16GM bottle NS SCH (08:00)
[2019-03-21] MEDS: K, MAG and/or Phos replacement - Verify level? MC SCH (08:00)
[2019-03-21] MEDS ORDERED: K and/or MAG REPLACEMENT MC SCH (08:00)
[2019-03-21 08:21] LABS: HEMOGLOBIN 9.1 g/dl (12.0-16.0)
[2019-03-21] MEDS: lactulose 20gm/30ml cup PO SCH ×2 (08:21→21:02)
[2019-03-21] MEDS: lactobacillus rhamnosus 10,000 MMU CELLS/CAPSULE PO SCH ×2 (08:21→21:02)
[2019-03-21] MEDS: MVI, adult No.4 with vit. K 10 ML in dextrose 5% water 500ml 500 ML IV SCH ×2 (08:21)
[2019-03-21] MEDS: thiamine inj. 100 MG, folic acid inj. 2 MG in normal saline 100ml IV soln 100 ML IV SCH (08:22)
[2019-03-21 08:24] LABS: HEMATOCRIT 28.5 % (35.0-45.0); MEAN CORPUSCULAR HEMOGLOBIN 32.8 PG (27.0-31.0); MEAN CORPUSCULAR HGB CONC 31.9 g/dL (33.0-36.5); MEAN CORPUSCULAR VOLUME 102.8 FL (78-98); MEAN PLATELET VOLUME 7.8 FL (7.4-10.4); PLATELET COUNT 187 X10'3 (140-440); RED BLOOD COUNT 2.77 X10'6 (4.20-5.60); RED CELL DISTRIBUTION WIDTH 16.3 % (11.5-14.5)
[2019-03-21 09:05] LABS: ALANINE AMINOTRANSFERASE 100 U/L (12-78); ALBUMIN 2.3 G/DL (3.4-5.0); ALKALINE PHOSPHATASE 433 IU/L (46-116); ANION GAP 17 (8-16); BILIRUBIN,TOTAL 12.8 MG/DL (0.1-1.0); BLOOD UREA NITROGEN 12 MG/DL (7-18); BUN/CREATININE RATIO 3.7 (6.6-38.0); CALCIUM 7.8 MG/DL (8.5-10.1); CHLORIDE 96 MMOL/L (99-107); CREATININE 3.27 MG/DL (0.40-0.90); GLUCOSE 152 MG/DL (70-104); MAGNESIUM 1.5 MG/DL (1.5-2.4); SODIUM 134 MMOL/L (135-145); TOTAL CARBON DIOXIDE 21.4 MMOL/L (24-32); eGFR 15 ML/MIN
[2019-03-21 09:07] LABS: ALBUMIN/GLOBULIN RATIO 0.9 (1.1-1.5); ASPARTATE AMINO TRANSFERASE 210 U/L (10-37); POTASSIUM 3.7 MMOL/L (3.5-5.1); TOTAL PROTEIN 4.8 G/DL (6.4-8.2)
[2019-03-21 09:10] LABS: PHOSPHORUS 0.8 MG/DL (2.3-4.5)
--- NOTE | 2019-03-21 09:22 | NUR ---
Received critical value from charge nurse. Phos 0.08
[2019-03-21] MEDS ORDERED: sodium phosphate inj. 30 MMOL in dextrose 5%-water 250 ML IV ONE (09:30)
--- NOTE | 2019-03-21 09:31 | NUR ---
Received call back from MD, new orders received.
[2019-03-21 09:36] LABS: NUCLEATED RED BLOOD CELLS 11 /100WBC (0-0); TOTAL CELLS COUNTED 100
[2019-03-21 09:37] LABS: ANISOCYTOSIS 1+; PLATELET ESTIMATE NORMAL; POLYCHROMASIA 2+
[2019-03-21 09:38] LABS: STOMATOCYTES 3+
[2019-03-21 10:00] VITALS: BP 109/54
[2019-03-21] MEDS: morphine 2 MG/ML inj. syringe IV PRN ×2 (14:50→21:02)
[2019-03-21 18:00] VITALS: BP 103/49
--- NOTE | 2019-03-21 18:00 | NUR ---
Patient in room ORTHO 4017. I have received report from VERITO Cerda and had the opportunity to ask questions and assume patient care.
--- NOTE | 2019-03-21 18:15 | NUR ---
Problems reprioritized. Patient report given, questions answered & plan of care reviewed with Demetria and Will.
--- NOTE | 2019-03-21 19:13 | NUR ---
Patient in room ORTHO 4017. I have received report from jaswinder and had the opportunity to ask questions and assume patient care.
[2019-03-21 22:00] VITALS: BP 93/44
[2019-03-22] MEDS: morphine 4 MG/ML inj SYRINge IV PRN (02:45)
[2019-03-22 02:50] VITALS: BP 112/57
--- NOTE | 2019-03-22 06:44 | NUR ---
Problems reprioritized. Patient report given, questions answered & plan of care reviewed with VERITO Choi.
[2019-03-22 07:02] LABS: HEMOGLOBIN 9.1 g/dl (12.0-16.0); RED BLOOD COUNT 2.79 X10'6 (4.20-5.60)
[2019-03-22 07:04] LABS: HEMATOCRIT 28.7 % (35.0-45.0); MEAN CORPUSCULAR HEMOGLOBIN 32.6 PG (27.0-31.0); MEAN CORPUSCULAR HGB CONC 31.6 g/dL (33.0-36.5); MEAN CORPUSCULAR VOLUME 102.9 FL (78-98); MEAN PLATELET VOLUME 8.2 FL (7.4-10.4); PLATELET COUNT 150 X10'3 (140-440); RED CELL DISTRIBUTION WIDTH 17.2 % (11.5-14.5); WHITE BLOOD COUNT 14.4 X10'3 (4.5-11.0)
[2019-03-22 07:05] VITALS: BP 87/41
[2019-03-22 07:19] LABS: ALANINE AMINOTRANSFERASE 96 U/L (12-78); ALKALINE PHOSPHATASE 481 IU/L (46-116); ANION GAP 13 (8-16); BILIRUBIN,TOTAL 13.9 MG/DL (0.1-1.0); BLOOD UREA NITROGEN 19 MG/DL (7-18); BUN/CREATININE RATIO 4.2 (6.6-38.0); CALCIUM 7.6 MG/DL (8.5-10.1); CHLORIDE 97 MMOL/L (99-107); CREATININE 4.54 MG/DL (0.40-0.90); GLUCOSE 134 MG/DL (70-104); MAGNESIUM 1.5 MG/DL (1.5-2.4); SODIUM 135 MMOL/L (135-145); TOTAL CARBON DIOXIDE 24.8 MMOL/L (24-32); eGFR 10 ML/MIN
[2019-03-22 07:25] LABS: ALBUMIN/GLOBULIN RATIO 0.7 (1.1-1.5); ASPARTATE AMINO TRANSFERASE 171 U/L (10-37); POTASSIUM 3.6 MMOL/L (3.5-5.1); TOTAL PROTEIN 4.7 G/DL (6.4-8.2)
[2019-03-22 07:30] LABS: ANISOCYTOSIS 1+; NUCLEATED RED BLOOD CELLS 15 /100WBC (0-0); PLATELET ESTIMATE NORMAL; TOTAL CELLS COUNTED 100
[2019-03-22 07:31] LABS: POLYCHROMASIA 3+; TARGET CELLS 1+
[2019-03-22] MEDS: K, MAG and/or Phos replacement - Verify level? MC SCH (08:00)
[2019-03-22] MEDS: fluticasone nasal spray 16GM bottle NS SCH (08:00)
[2019-03-22] MEDS: lactobacillus rhamnosus 10,000 MMU CELLS/CAPSULE PO SCH ×2 (08:24→20:18)
[2019-03-22] MEDS: thiamine inj. 100 MG, folic acid inj. 2 MG in normal saline 100ml IV soln 100 ML IV SCH (08:24)
[2019-03-22] MEDS: lactulose 20gm/30ml cup PO SCH ×2 (08:24→20:18)
[2019-03-22] MEDS: MVI, adult No.4 with vit. K 10 ML in dextrose 5% water 500ml 500 ML IV SCH ×2 (08:24)
[2019-03-22] MEDS: levoFLOXACIN-Levaquin 250mg/D5 50 ML IV SCH (08:25)
[2019-03-22] MEDS: venlafaxine XR 75mg capsule (Q24H) PO SCH (08:25)
[2019-03-22] MEDS: pantoprazole 40 MG vial IV SCH (08:25)
[2019-03-22 10:00] VITALS: BP 90/47
[2019-03-22] MEDS ORDERED: bisacodyl 10mg suppository rectal RC STA (10:31)
--- NOTE | 2019-03-22 13:07 | NUR ---
Initial: Pt admit w/ ALOC s/p mx falls hx etoh abuse 6-7 shots daily for pain per EMR. Pt AOx1 DX acute CHRISTOPHER, etoh hepatitis, acute liver failure CT shows no cirrhosis, and etoh pancreatitis per MD note. S/p HD past 2 days off today and to receive tomorrow per MD. Per MD note abdomen distended and x-ray shows ileus but x-ray reports colonic distention and pt having regular BM's. Receiving lactulose BID given DX and ammonia 37. Advanced to pureed/honey thick liquids per CORN PRESS OPERATOR. Pt PO 0%/refusing meals past 5 days since admit. Jose 12; skin intact though significant edema present. Would benefit from corpak post-pyloric feeds since placed in proximal jejunum past pancreas and given pt PO hx w/ ALOC. Receiving banana bag. Will monitor for additional nutrition needs; TF recs below. Rec: 1. continue pureed/honey thick liquid diet per CORN PRESS OPERATOR/MD 2. IF low PO persists; consider supplemental NG corpak feeds since post-pyloric past pancreas per MD approval 3. IF TF; Vital AF at 65ml/hr goal 4. routine bowel care 5. weekly wts Addendum: 03/22/19 at [address] Amended: Links added.
[2019-03-22 19:00] VITALS: BP 101/49
[2019-03-22] MEDS ORDERED: LORazepam 1 MG tablet PO PRN (19:35)
[2019-03-22] MEDS ORDERED: LORazepam 2 mg/ml vial IV PRN (19:35)
[2019-03-22 22:00] VITALS: BP 107/52
--- NOTE | 2019-03-23 03:28 | NUR ---
pt pulled out ngt,explained procedure to pt,ngt reinserted,pt nacho procedure no complications noted.
[2019-03-23 05:29] LABS: HEMOGLOBIN 9.8 g/dl (12.0-16.0); PLATELET COUNT 135 X10'3 (140-440); RED CELL DISTRIBUTION WIDTH 17.7 % (11.5-14.5)
[2019-03-23 05:37] LABS: HEMATOCRIT 30.6 % (35.0-45.0); MEAN CORPUSCULAR HEMOGLOBIN 32.9 PG (27.0-31.0); MEAN CORPUSCULAR VOLUME 102.6 FL (78-98); MEAN PLATELET VOLUME 8.6 FL (7.4-10.4); RED BLOOD COUNT 2.98 X10'6 (4.20-5.60); WHITE BLOOD COUNT 13.2 X10'3 (4.5-11.0)
[2019-03-23 05:43] LABS: ALANINE AMINOTRANSFERASE 89 U/L (12-78); ALBUMIN 1.9 G/DL (3.4-5.0); ALKALINE PHOSPHATASE 513 IU/L (46-116); ANION GAP 13 (8-16); BILIRUBIN,TOTAL 15.5 MG/DL (0.1-1.0); BLOOD UREA NITROGEN 26 MG/DL (7-18); BUN/CREATININE RATIO 4.9 (6.6-38.0); CALCIUM 7.8 MG/DL (8.5-10.1); CHLORIDE 96 MMOL/L (99-107); CREATININE 5.36 MG/DL (0.40-0.90); MAGNESIUM 1.4 MG/DL (1.5-2.4); SODIUM 133 MMOL/L (135-145); eGFR 8 ML/MIN
[2019-03-23 06:04] LABS: ASPARTATE AMINO TRANSFERASE 155 U/L (10-37)
[2019-03-23 06:06] LABS: ALBUMIN/GLOBULIN RATIO 0.7 (1.1-1.5); GLUCOSE 121 MG/DL (70-104); PHOSPHORUS 2.2 MG/DL (2.3-4.5); POTASSIUM 3.6 MMOL/L (3.5-5.1); TOTAL PROTEIN 4.8 G/DL (6.4-8.2)
[2019-03-23 06:19] LABS: ANISOCYTOSIS 1+; NUCLEATED RED BLOOD CELLS 6 /100WBC (0-0); PLATELET ESTIMATE NORMAL; TOTAL CELLS COUNTED 100
[2019-03-23 06:20] LABS: POLYCHROMASIA 3+; STOMATOCYTES FEW; TARGET CELLS 1+
[2019-03-23 06:55] VITALS: BP 99/40
[2019-03-23] MEDS ORDERED: heparin 1,000 units/ml 10ml inj IV ONE ×2 (08:00→10:00)
[2019-03-23] MEDS ORDERED: heparin 1,000 units/ml 10ml inj HE ONE ×4 (08:00→10:05)
[2019-03-23] MEDS: K, MAG and/or Phos replacement - Verify level? MC SCH (08:00)
[2019-03-23] MEDS ORDERED: heparin 1,000unit/ml 10ml vial 10 ML IV ONE ×2 (08:00→10:00)
[2019-03-23] MEDS: fluticasone nasal spray 16GM bottle NS SCH (08:00)
[2019-03-23] MEDS ORDERED: albumin (human) 25% 100ml IV 100 ML IV PRN ×2 (08:00→10:00)
[2019-03-23] MEDS ORDERED: epoetin 20,000 units/ml inj IV ONE ×2 (08:00→10:00)
[2019-03-23] MEDS: venlafaxine XR 75mg capsule (Q24H) PO SCH (08:39)
[2019-03-23] MEDS: multivitamins, therapeutics tablet PO SCH (08:39)
[2019-03-23] MEDS: lactulose 20gm/30ml cup PO SCH ×2 (08:39→20:20)
[2019-03-23] MEDS: MVI, adult No.4 with vit. K 10 ML in dextrose 5% water 500ml 500 ML IV SCH ×2 (08:39)
[2019-03-23] MEDS: thiamine inj. 100 MG, folic acid inj. 2 MG in normal saline 100ml IV soln 100 ML IV SCH (08:39)
[2019-03-23] MEDS: levoFLOXACIN-Levaquin 250mg/D5 50 ML IV SCH (08:39)
[2019-03-23] MEDS: pantoprazole 40 MG vial IV SCH (08:39)
[2019-03-23] MEDS: lactobacillus rhamnosus 10,000 MMU CELLS/CAPSULE PO SCH ×2 (08:39→20:20)
[2019-03-23 10:10] VITALS: BP 89/46
[2019-03-23 18:30] VITALS: BP 94/52
[2019-03-23 22:16] VITALS: BP 105/58
[2019-03-24 05:15] LABS: HEMOGLOBIN 9.2 g/dl (12.0-16.0); MEAN CORPUSCULAR HEMOGLOBIN 32.2 PG (27.0-31.0); MEAN PLATELET VOLUME 8.8 FL (7.4-10.4); RED CELL DISTRIBUTION WIDTH 18.1 % (11.5-14.5)
[2019-03-24 05:20] LABS: BASOPHILS # (AUTO) 0.1 X10'3 (0-0.2); BASOPHILS % (AUTO) 0.5 % (0-1); EOSINOPHILS # (AUTO) 0.3 X10'3 (0-0.9); EOSINOPHILS % (AUTO) 2.1 % (0-6); HEMATOCRIT 29.1 % (35.0-45.0); LYMPHOCYTES # (AUTO) 3.3 X10'3 (1.1-4.8); LYMPHOCYTES % (AUTO) 26.8 % (21-51); MEAN CORPUSCULAR HGB CONC 31.6 g/dL (33.0-36.5); MEAN CORPUSCULAR VOLUME 101.9 FL (78-98); MONOCYTES # (AUTO) 4.6 X10'3 (0-0.9); MONOCYTES % (AUTO) 36.6 % (2-12); NEUTROPHILS # (AUTO) 4.2 X10'3 (1.8-7.7); PLATELET COUNT 108 X10'3 (140-440); RED BLOOD COUNT 2.85 X10'6 (4.20-5.60)
[2019-03-24 05:37] LABS: ALANINE AMINOTRANSFERASE 77 U/L (12-78); ALBUMIN 1.9 G/DL (3.4-5.0); ALKALINE PHOSPHATASE 476 IU/L (46-116); ANION GAP 11 (8-16); BILIRUBIN,TOTAL 14.7 MG/DL (0.1-1.0); BLOOD UREA NITROGEN 18 MG/DL (7-18); CALCIUM 7.8 MG/DL (8.5-10.1); CHLORIDE 99 MMOL/L (99-107); MAGNESIUM 1.7 MG/DL (1.5-2.4); SODIUM 136 MMOL/L (135-145); TOTAL CARBON DIOXIDE 25.8 MMOL/L (24-32)
[2019-03-24 05:41] LABS: ALBUMIN/GLOBULIN RATIO 0.7 (1.1-1.5); ASPARTATE AMINO TRANSFERASE 162 U/L (10-37); BUN/CREATININE RATIO 4.7 (6.6-38.0); CREATININE 3.84 MG/DL (0.40-0.90); GLUCOSE 116 MG/DL (70-104); PHOSPHORUS 1.8 MG/DL (2.3-4.5); POTASSIUM 4.1 MMOL/L (3.5-5.1); TOTAL PROTEIN 4.7 G/DL (6.4-8.2); eGFR 12 ML/MIN
[2019-03-24 06:01] LABS: NUCLEATED RED BLOOD CELLS 11 /100WBC (0-0); TOTAL CELLS COUNTED 100
[2019-03-24 06:03] LABS: ANISOCYTOSIS 2+; PLATELET ESTIMATE DECREASED; POLYCHROMASIA 3+
[2019-03-24 06:06] LABS: WHITE BLOOD COUNT 11.8 X10'3 (4.5-11.0)
[2019-03-24 06:10] VITALS: BP 84/45
--- NOTE | 2019-03-24 06:47 | NUR ---
report received from Coco, RN
[2019-03-24] MEDS: pantoprazole 40 MG vial IV SCH (07:16)
[2019-03-24] MEDS: multivitamins, therapeutics tablet PO SCH (07:16)
[2019-03-24] MEDS: lactulose 20gm/30ml cup PO SCH (07:16)
[2019-03-24] MEDS: lactobacillus rhamnosus 10,000 MMU CELLS/CAPSULE PO SCH (07:16)
[2019-03-24] MEDS: thiamine inj. 100 MG, folic acid inj. 2 MG in normal saline 100ml IV soln 100 ML IV SCH (07:17)
[2019-03-24] MEDS: levoFLOXACIN-Levaquin 250mg/D5 50 ML IV SCH (07:17)
[2019-03-24] MEDS: venlafaxine XR 75mg capsule (Q24H) PO SCH (07:17)
[2019-03-24] MEDS: MVI, adult No.4 with vit. K 10 ML in dextrose 5% water 500ml 500 ML IV SCH ×2 (07:18)
[2019-03-24] MEDS: fluticasone nasal spray 16GM bottle NS SCH (10:30)
[2019-03-24] MEDS: K, MAG and/or Phos replacement - Verify level? MC SCH (10:30)
[2019-03-24] MEDS ORDERED: LORazepam 2 mg/ml vial IV PRN (11:25)
[2019-03-24] MEDS ORDERED: morphine ORAL 5MG/0.25 ML (Conc. morphine) oral syringe PO PRN (11:25)
[2019-03-24 11:36] VITALS: BP 107/61
[2019-03-24] MEDS ORDERED: morphine 10mg/0.5ml (conc. morphine) oral syringe PO PRN (12:08)
--- NOTE | 2019-03-24 12:30 | NUR ---
Pt has been made DNR w/ comfort care. Documented having BMs routinely but also LBM 03/20 in EMR; likely routinely since receiving lactulose BID. Pt advanced to pureed/honey thick per EXERCISE PHYSIOLOGIST CERTIFIED. 0% PO 7 days since admit in addition to severe weakness qualify pt for severe malnutrition at this time. Will continue to follow per protocol. Rec: 1. continue pureed/honey thick liquid diet as medically indicated 2. routine bowel care Addendum: 03/24/19 at [address] Amended: Links added.
--- NOTE | 2019-03-24 18:30 | NUR ---
Received report from Steph SELLERS. Assumed care of patient.
[2019-03-24 22:00] VITALS: BP 102/58
[2019-03-25] MEDS: morphine 4 MG/ML inj SYRINge IV PRN (01:20)
[2019-03-25] MEDS: morphine 10mg/0.5ml (conc. morphine) oral syringe PO PRN ×4 (01:34→20:05)
--- NOTE | 2019-03-25 06:21 | NUR ---
Gave report to Kristie SELLERS.
--- NOTE | 2019-03-25 06:22 | NUR ---
received report from katerine ulrich
[2019-03-25 10:00] VITALS: BP 101/53
[2019-03-25] MEDS: LORazepam 1 MG tablet PO PRN (12:15)
--- NOTE | 2019-03-25 18:13 | NUR ---
GAVE REPORT TO VERITO JIMÉNEZ
--- NOTE | 2019-03-25 18:15 | NUR ---
Received report from Kristie SELLERS. assumed care of patient.
[2019-03-25 22:00] VITALS: BP 99/54
--- NOTE | 2019-03-26 06:13 | NUR ---
Gave report to Kristie SELLERS.
--- NOTE | 2019-03-26 06:20 | NUR ---
received report from katerine ulrich
[2019-03-26] MEDS: morphine 10mg/0.5ml (conc. morphine) oral syringe PO PRN ×4 (07:34→23:06)
[2019-03-26 10:00] VITALS: BP 96/50
--- NOTE | 2019-03-26 18:19 | NUR ---
gave report to candace freire rn
--- NOTE | 2019-03-27 00:58 | NUR ---
reviewed and edited nursing assessment from LEIDA. Addendum: 03/27/19 at 0058 by Callie Saravia RN YUVAL
--- NOTE | 2019-03-27 06:20 | NUR ---
I have received patient report from Callie Gusman and Cynthia dorantes
--- NOTE | 2019-03-27 06:22 | NUR ---
Problems reprioritized. Patient report given, questions answered & plan of care reviewed with Katerina SELLERS.
[2019-03-27] MEDS: morphine 10mg/0.5ml (conc. morphine) oral syringe PO PRN ×3 (09:09→23:44)
[2019-03-27 10:00] VITALS: BP 80/36
--- NOTE | 2019-03-27 18:30 | NUR ---
Patient report given to Callie Gusman Rn and Cynthia
--- NOTE | 2019-03-28 03:49 | NUR ---
Reviewed and agree with SRN assessment.
--- NOTE | 2019-03-28 06:09 | NUR ---
Problems reprioritized. Patient report given, questions answered & plan of care reviewed with VERITO Borges.
--- NOTE | 2019-03-28 06:30 | NUR ---
Patient in room ORTHO 4017. I have received report from Callie Gusman RN and had the opportunity to ask questions and assume patient care.
[2019-03-28 10:00] VITALS: BP 87/44
[2019-03-28] MEDS: acetaminophen 650mg rectal suppository RC PRN (12:00)
--- NOTE | 2019-03-28 18:27 | NUR ---
Patient report given to Saskia Mccormick
[2019-03-29] MEDS: morphine 10mg/0.5ml (conc. morphine) oral syringe PO PRN ×7 (00:56→20:38)
--- NOTE | 2019-03-29 03:41 | NUR ---
reviewed and agree with SRN assessment findings.
--- NOTE | 2019-03-29 06:20 | NUR ---
Patient in room ORTHO 4017. I have received report from Callie Gusman RN and had the opportunity to ask questions and assume patient care.
--- NOTE | 2019-03-29 06:28 | NUR ---
Problems reprioritized. Patient report given, questions answered & plan of care reviewed with VERITO Lincoln.
[2019-03-29] MEDS: acetaminophen 650mg rectal suppository RC PRN ×2 (10:08→17:00)
[2019-03-29] MEDS: LORazepam 1 MG tablet PO PRN ×3 (11:53→21:12)
--- NOTE | 2019-03-29 17:49 | NUR ---
Roxinol was increased to Q1H per Morelia Wisdom, patient is groaning more today and appears in pain; and increased work of breathing. Patient also was found to have a temperature of 104; a suppository of tylenol was given twice on day shift for elevated temperature. Q2H repositioning of patient. Will continue to monitor.
--- NOTE | 2019-03-29 18:23 | NUR ---
Problems reprioritized. Patient report given, questions answered & plan of care reviewed with Meenu SELLERS.
--- NOTE | 2019-03-29 18:52 | NUR ---
Report rec'd from EVRITO Ibanez.
--- NOTE | 2019-03-29 23:17 | NUR ---
Pt is asystole at 2240. Family notified, EDUIN Fabian notified, [facility]or network notified with ref # [id number]. [facility] notified.
--- NOTE | 2019-03-30 02:49 | NUR ---
[facility] on site now, pt is being transferred and leaving at this time.
== END 2019-03-29 22:00 | disposition expired | DRG 871 ==
LOC: ER 19:00 → CICU 2S 03-17 01:41 → CMPBEDREQ 03-17 03:19 → ICU 2S 03-18 16:10 → ORTHO 4S 03-20 12:30
PROVIDERS: ADMIT Internal Medicine Critical Care Medicine; ATTEND Internal Medicine Critical Care Medicine
PROC: 0JH63XZ Insertion of Tunneled Vascular Access Device into Chest Subcutaneous Tissue and Fascia, Percutaneous Approach (ICD-10-PCS; principal; 2019-03-19)
PROC: 02H633Z Insertion of Infusion Device into Right Atrium, Percutaneous Approach (ICD-10-PCS; 2019-03-19)
PROC: B244ZZZ Ultrasonography of Right Heart (ICD-10-PCS; 2019-03-19)
DX: A41.9 Sepsis, unspecified organism (principal); K85.20 Alcohol induced acute pancreatitis without necrosis or infection; G93.41 Metabolic encephalopathy; S06.5X9A Traumatic subdural hemorrhage with loss of consciousness of unspecified duration, initial encounter; N17.9 Acute kidney failure, unspecified; N39.0 Urinary tract infection, site not specified; E87.1 Hypo-osmolality and hyponatremia; K44.9 Diaphragmatic hernia without obstruction or gangrene; E78.00 Pure hypercholesterolemia, unspecified; G89.29 Other chronic pain; I10 Essential (primary) hypertension; K70.30 Alcoholic cirrhosis of liver without ascites; Z51.5 Encounter for palliative care; Z66 Do not resuscitate; K70.40 Alcoholic hepatic failure without coma; W18.39XA Other fall on same level, initial encounter; Z90.710 Acquired absence of both cervix and uterus; Y93.89 Activity, other specified; Y92.89 Other specified places as the place of occurrence of the external cause; Y99.8 Other external cause status; Z88.1 Allergy status to other antibiotic agents
CPT/HCPCS: 36415; 36558; 70450; 74018; 74176; 76937; 77001; 80053; 80305; 80320; 81001; 81025; 82140; 82272; 82330; 82550; 82948; 83605; 83690; 83735; 84100; 84145; 84484; 85025; 85610; 87040; 87077; 87081; 87088; 87186; 87340; 92508; 96361; 96365; 96375; 96376; 97110; 97162; 97530; 97535; 99291; 99292; A9270; C1750; C1894; C9113; G0257; G0378; J0780; J1200; J1644; J1940; J1956; J2060; J2150; J2270; J2405; J3010; J3411; J3430; J3480; J3490; J7060; P9047; Q4081